=== PATIENT | male | born 1955 | race Caucasian/White ===

== ENCOUNTER → 2016-11-15 09:23 | Outpatient (CLI) | payer MEDICAID ==
[2014-11-18 06:06] VITALS: BMI 27.3
[~2016-11-15 09:23] MED LIST: ASPIRIN325 MG PO; COLACE100 MG; COLACE100 MG PO; COREG6.25 MG PO; DEMEROL50 MG PO; IBUPROFEN200 MG PO; LISINOPRIL10 MG PO; LISINOPRIL5 MG; LISINOPRIL5 MG NG; NORCO 10/325 TA1 TA1 PO; ULTRAM50 MG PO; VALIUM5 MG; VALIUM5 MG PO
== END | disposition home or self-care (01) ==
LOC: D.US 09:23
DX: R22.2 Localized swelling, mass and lump, trunk (principal)

== ENCOUNTER → 2019-02-28 08:23 | Outpatient (CLI) | payer MEDICAID ==
[2014-11-18 06:06] VITALS: BMI 27.3
== END | disposition home or self-care (01) ==
LOC: D.RAD 08:23
PROVIDERS: ATTEND Family Medicine
DX: M25.511 Pain in right shoulder (principal)